=== PATIENT | female | born 1965 | race Caucasian/White ===

== ENCOUNTER → 2017-05-24 | Outpatient (CLI) | payer BC ==
--- NOTE | 2017-05-24 10:28 | KCIC ---
Diagnostic digital mammograms left breast: Reason for examination: Follow-up parenchymal asymmetry and nodule. Comparison is made to previous study dated 11/28/2016. The skin and nipples show no abnormalities. No abnormal appearing lymph nodes are seen in the axilla. The breast parenchyma density is category B. There continues to be parenchymal asymmetry at the 6:00 position anteriorly which is unchanged. There are no new dominant masses, suspicious calcifications or architectural distortions. IMPRESSION: Continued presence of parenchymal asymmetry at the 6:00 position with no interval change. Ultrasound to follow. BI-RADS Category 0: Incomplete. Ultrasound to follow. Left breast ultrasound: Comparison is made to previous study dated 12/18/2016. There is some fibroglandular tissue in the 6:00 position. There is a small 6 mm nodule at the 5:30 position 5 cm from the nipple which is unchanged. No other cystic or solid lesions are seen. IMPRESSION: Continued presence of a small nodule at the 5:30 position which shows no significant change. No suspicious-appearing lesion seen. Recommend 6 month follow-up with bilateral mammograms and left breast ultrasound. BI-RADS Category 3: Probably Benign. "Our facility is accredited by the [employer] Mammography Program." This patient's information has been entered into a reminder system for the patient to be notified with the results of her examination and a target date for the next mammogram. Electronically signed by: Francisca Taylor MD (05/24/2017 10:25 AM) [id number]
== END | disposition home or self-care (01) ==
LOC: KCIC MAMMO 08:42
PROVIDERS: ATTEND Surgery
DX: N63 Unspecified lump in breast (principal)
CPT/HCPCS: 76641; G0206; 77065